=== PATIENT | male | born 1965 | race African-American/Black ===

== ENCOUNTER 2017-12-06 12:41 | Emergency (ER) | payer MEDICAID, MEDICARE ==
[~2017-12-06] VITALS: Ht 160 cm; Wt 87.8 kg
[~2017-12-06 12:41] MED LIST: ALPR-475 PO; FLUO20CA19 PO; OLAN20TA3 PO; TRAZ50TA18 PO
[2017-12-06 12:43] VITALS: BP 115/76
== END 2017-12-06 15:09 | disposition home or self-care (01) ==
LOC: ED 14:32
DX: R05 Cough (principal); R09.81 Nasal congestion; R51 Headache; F17.200 Nicotine dependence, unspecified, uncomplicated
CPT/HCPCS: 71046; 99284